=== PATIENT | male | born 1955 | race African-American/Black ===

== ENCOUNTER 2022-02-02 21:02 | Emergency (ER) | payer OTHER ==
[~2022-02-02] VITALS: Ht 172.7 cm; Wt 81.8 kg
[~2022-02-02 21:02] MED LIST: PATCH REMOVAL. MC SCH
[2022-02-02 21:15] VITALS: BP 156/93
--- NOTE | 2022-02-02 21:49 | RAD ---
Study: XR KNEE 4 VIEWS WITH PATELLA_RT Indication: Right knee pain. Injury. Comparison: None. Findings: Maintained femorotibial compartment joint space height. No fracture or malalignment. No large knee amada int effusion. Impression: No acute osseous abnormality, significant arthrosis or joint effusion. Electronically signed by: YOUSIF EDWARDS MD (02/02/2022 9:47 PM) [facility]
--- NOTE | 2022-02-02 22:11 | PHYS DOC ---
Past History Past Surgical History: No Surgical History Alcohol Use: None Adult General Chief Complaint Chief Complaint: LOWEREXTREMITY INJURY HPI HPI Patient is a otherwise healthy 66-year-old male who presents with right knee pain. 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 States it hurts, 3 out of 10, dull and achy in nature. Denies any numbness/weakness/tingling. States he is able to sit, stand and walk without issue. States he did take some ibuprofen already. Denies any other injuries. Review of Systems Review of Systems Review of systems otherwise unremarkable except noted in HPI Physical Exam Physical Exam Constitutional: Well developed, well nourished, no acute distress, non-toxic appearance. [] HENT: Normocephalic, atraumatic, Skin: Warm, dry, no erythema, no rash. [] Back: No tenderness, no CVA tenderness. [] Extremities: Neurovascular exam intact, no obvious swelling, bruising or deformities noted Neurologic: Alert and oriented X 3, normal motor function, normal sensory function, able to sit, stand and walk without issue, no focal deficits noted. [] Psychologic: Affect normal, judgement normal, mood normal. [] Current Patient Data Vital Signs Vital Signs Date Time Temp Pulse Resp B/P (MAP) Pulse Ox O2 Delivery O2 Flow Rate FiO2 02/02/22 21:15 98.3 60 18 156/93 (114) 97 Room Air EKG EKG [] Radiology/Procedures Radiology/Procedures [] Heart Score C/O Chest Pain: No Risk Factors: Risk Factors: DM, Current or recent (<one month) smoker, HTN, HLP, family history of CAD, obesity. Risk Scores: Risk Factors: DM, Current or recent (<one month) smoker, HTN, HLP, family history of CAD, obesity. Course & Med Decision Making Course & Med Decision Making Patient is a 66-year-old male presents with right knee pain Vital signs notable for mild hypertension. Physical exam noted above. Denied need for any pain medicine. Given Lidoderm patch Imaging with no acute osseous abnormalities. Discussed all findings with patient. Discussed symptom treatment at home. Advised to follow-up with primary care in the morning to update on ED visit. Gave return precautions to the ED. Patient grateful, verbalized understanding and agreed with plan of discharge [] Dragon Disclaimer Dragon Disclaimer This electronic medical record was generated, in whole or in part, using a voice recognition dictation system. Departure Departure: Impression: Primary Impression: Knee pain Disposition: HOME / SELF CARE / HOMELESS Condition: STABLE Referrals: JOSEFA HILL DO (PCP) Patient Instructions: Knee Pain, RICE - Routine Care for Injuries Additional Instructions: Thank you for coming into the emergency department tonight and allowing us to take care of you. Please read the attached information carefully to go over th ings we discussed. You can continue Tylenol, ibuprofen, Benadryl and ice at home as well as Lidoderm patches. Please follow-up in the morning with your primary care physician update on your ED visit. Please come back with new or concerning symptoms as we discussed. ZUNILDA DARLING MD Feb 02, 2022 22:11
[2022-02-02] MEDS ORDERED: LIDOCAINE (700MG/PATCH) PATCH. ONE (22:16)
[2022-02-03] MEDS ORDERED: LIDOCAINE (700MG/PATCH) PATCH. TD SCH (09:00)
== END 2022-02-02 22:20 | disposition home or self-care (01) ==
LOC: ER 21:02
DX: M25.561 Pain in right knee (principal); G89.11 Acute pain due to trauma; W18.39XA Other fall on same level, initial encounter; Y93.89 Activity, other specified; Y92.89 Other specified places as the place of occurrence of the external cause; Y99.8 Other external cause status
CPT/HCPCS: 73564; 99283